=== PATIENT | female | born 1960 | race American Indian/Alaskan Native ===

== ENCOUNTER 2017-02-28 13:58 | Outpatient (CLI) | payer MEDICARE ==
--- NOTE | 2017-03-01 16:09 | Mammography Report ---
BILATERAL DIGITAL SCREENING MAMMOGRAM with CAD: 02/28/17 13:58:00 CLINICAL: Routine screening. COMPARISON:06/08/14 FINDINGS: The breasts are heterogeneously dense, which may obscure small masses.Right outer biopsy clip. No mass, architectural distortion or suspicious calcifications. IMPRESSION: No mammographic evidence of malignancy. BI-RADS CATEGORY: 2 - - Benign RECOMMENDATION: Routine mammographic screening in one year. COMMENT: Patient follow-up letters are generated by our [employer] application.
== END 2017-02-28 13:59 | disposition home or self-care (01) ==
LOC: MAMMO 13:58
PROVIDERS: ATTEND Internal Medicine
DX: Z12.31 Encounter for screening mammogram for malignant neoplasm of breast (principal)
CPT/HCPCS: 77067; G0202

== ENCOUNTER 2018-07-18 08:15 | Outpatient (CLI) | payer MEDICARE ==
--- NOTE | 2018-07-18 15:20 | Ultrasound Report ---
BILATERAL DIGITAL SCREENING MAMMOGRAM with CAD and DIGITAL BREAST TOMOSYNTHESIS (DBT) and BILATERAL BREAST ULTRASOUND : 07/18/18 CLINICAL: Routine screening.The patient also described bilateral breast pain and bilateral nonspontaneous clear nipple discharge. COMPARISON:02/28/17 bilateral mammogram and bilateral mammogram and left breast ultrasound from 06/08/14 FINDINGS: There are bilateral scattered fibroglandular densities.A low density 12 mm circumscribed left mass at 12 o'clock on images 71 CC and 61 MLO ajit images. No other mass, architectural distortion or suspicious calcifications. Ultrasound of the right breast (including all four quadrants and the retroareolar area) was performed and demonstrated normal fibroglandular and fatty structures. No mass, cyst or shadowing. Ultrasound of the left breast (including all four quadrants and the retroareolar area) was performed and demonstrated an oval solid smooth hypoechoic mass at 12 o'clock 6 cm from the nipple measuring 7 x 3 x 8 mm. It correlates with the mammographic mass and is unchanged compared to the 2014 left breast ultrasound. The left breast is otherwise negative. IMPRESSION: Negative right breast and a stable 8mm solid left breast mass at 12 o'clock six in meters from the nipple. BI-RADS CATEGORY: 2 - - Benign RECOMMENDATION: Clinical followup and routine mammographic screening in one year. COMMENT: Patient follow-up letters are generated by our [employer] application.
== END 2018-07-18 08:16 | disposition home or self-care (01) ==
LOC: SPVWC 08:15
PROVIDERS: ATTEND Internal Medicine
DX: Z12.31 Encounter for screening mammogram for malignant neoplasm of breast (principal); N64.4 Mastodynia
CPT/HCPCS: 77063; 77067

== ENCOUNTER 2019-08-22 10:01 | Outpatient (CLI) | payer MEDICARE ==
--- NOTE | 2019-08-22 12:47 | Ultrasound Report ---
BILATERAL DIGITAL DIAGNOSTIC MAMMOGRAM -- 08/22/2019 BILATERAL LIMITED BREAST ULTRASOUND INDICATION: Palpable pea-sized lump right breast skin lesion. Focal pain left middle breast and right superior breast. TECHNIQUE: Digital bilateral mammographic imaging was performed. Limited ultrasound was performed. COMPARISON: Mammograms dated 07/18/2018 and 02/28/2017 FINDINGS: Breast Density: There are scattered areas of fibroglandular density. Postbiopsy changes are noted on the right. No discrete abnormality is seen in the areas of the patient's focal pain, mid left breast and superior right breast. Vague densities seen correlating with the patient's palpable abnormality r ight breast far superior and posterior 12:30 o'clock position 16 cm from the nipple. There is no evidence of dominant mass, suspicious calcifications or architectural distortion in the l eft breast. Ultrasound Findings: Targeted sonographic evaluation was performed on the area of interest. On the sk in surface of the right breast, correlating with the patient's area of palpable concern, there is a h yperechoic nodule measuring 5.5 mm. No vascularity is associated with this noted nodule. The underlyi ng breast tissue is unremarkable. IMPRESSION: Benign appearing skin lesion correlates with the patient's palpable abnormality. Recommen d correlation with dermatological examination. No suspicious abnormality is seen in the areas of the patient's focal pain in either breast on mammog lis or ultrasound. BI-RADS Category 2: Benign. Recommend routine screening mammography in one year A "normal" or negative report should not discourage follow up or biopsy of a clinically significant f inding. A written summary of these findings will be mailed to the patient. The patient will be entered into a mammography reporting system which will generate a reminder letter for the patient's next appointmen t at the appropriate interval. According to the [employer], yearly mammograms are recommended starting at age 40 and continuing as long as a woman is in good health. Breast MRI is recommended for women with an dior roximately 20-25% or greater lifetime risk of breast cancer, including women with a strong family his tory of breast or ovarian cancer and women who have been treated for Hodgkin's disease. Signer Name: Kristin Suarez MD Signed: 08/22/2019 12:42 PM Workstation Name: [id number]
== END 2019-08-22 10:02 | disposition home or self-care (01) ==
LOC: MAMMO 10:01
PROVIDERS: ATTEND Internal Medicine
DX: R92.8 Other abnormal and inconclusive findings on diagnostic imaging of breast (principal)
CPT/HCPCS: 77066